=== PATIENT | male | born 1985 | race African-American/Black ===

== ENCOUNTER 2018-10-11 20:32 | Emergency (ER) | payer OTHER ==
--- NOTE | 2018-10-11 20:47 | PDOC ---
Attending Attestation - HPI HPI: 10/11/18 22:02 The patient is a 33 year old male, with a significant past medical history of Asthma ( albuterol inhaler) and DM (not treated) who presents to the emergency department with 2 days of GI, abdominal pain and diarrhea. The patient notes having 5 episodes of vomiting described as brown in color accompanied with nausea, fevers and difficulty breathing. The patient notes having overall body aches and endorses polydipsia. The patient endorses sick contact from daughter ( with recent GI virus). The patient denies chest pain, headache or dizziness. Allergies: Seafood Past surgical history: None reported Social history: Tobacco use - Physicial Exam PE: 10/11/18 22:03 GENERAL: Appears weak and dehydrated. Awake, alert, and fully oriented. HEAD: No signs of trauma EYES: PERRLA, EOMI, sclera anicteric, conjunctiva clear ENT: Auricles normal inspection, hearing grossly normal, nares patent, oropharynx clear without exudates. Moist mucosa NECK: Normal ROM, supple, no lymphadenopathy, JVD, or masses LUNGS: Breath sounds equal, clear to auscultation bilaterally. No wheezes, and no crackles HEART: Not tachycardic. Regular rate and rhythm, normal S1 and S2, no murmurs, rubs or gallops ABDOMEN: (+) mild diffuse abdominal tenderness. (+) minimal rebound. Soft, nontender, normoactive bowel sounds. No guarding, No masses EXTREMITIES: Normal range of motion, no edema. No clubbing or cyanosis. No cords, erythema, or tenderness NEUROLOGICAL: Cranial nerves II through XII grossly intact. Normal speech. SKIN: Warm, Dry, normal turgor, no rashes or lesions noted. <Marylou Jacinto - Last Filed: 10/11/18 22:02> - Resident Resident Name: Frank Sheth - ED Attending Attestation I have performed the following: I have examined & evaluated the patient, The case was reviewed & discussed with the resident, I agree w/resident's findings & plan - Medical Decision Making 10/11/18 21:55 Pt likely has a viran gastroenteritis. He complains of fever chills and total body aches; this is possibly due to the flu; we will send a flu cx off. Pt also mentions that his 1yo child is ill. He has normal HEENT exam. Pt will be treated with tylenol. He is receiving fluid bolus. Labs are hemolyzed; they are being redrawn now. 10/11/18 22:08 WBC is elevated @ 17+ we will hydrate with a 2nd Liter. Pt is having ice chips. 10/11/18 22:31 acetone negative and flu ciulture negative. Awaiting cmp results. 10/11/18 22:38 cmp is normal <Krupa Jordan - Last Filed: 10/11/18 22:38> Attestations - Attestations 10/11/18 22:04 Documentation prepared by Marylou Jacinto, acting as medical underwriter for Krupa Jordan MD <Marylou Jacinto - Last Filed: 10/11/18 22:02>
[2018-10-11] MEDS ORDERED: SODIUM CHLORIDE 0.9% 500 ML INFUS.BAG IV ONE ×2 (21:01→22:07)
[2018-10-11] MEDS ORDERED: ONDANSETRON 4 MG/2 ML VIAL IVPB ONE (21:02)
[2018-10-11] MEDS ORDERED: FAMOTIDINE 20 MG/50 ML IVPB 20 MG/50 ML MG IVPB ONE ×2 (21:02→21:17)
[2018-10-11] MEDS ORDERED: ONDANSETRON 4 MG/2 ML VIAL ONE (21:16)
--- NOTE | 2018-10-11 21:34 | PDOC ---
History of Present Illness - General Chief Complaint: Vomiting/Diarrhea Stated Complaint: ABDOMINAL PAIN Time Seen by Provider: 10/11/18 20:37 History Source: Patient, Spouse Exam Limitations: No Limitations - History of Present Illness Initial Comments: Patient is a 33 y/o M w/ PMHx asthma on albuterol and DM (untreated), p/w 2 days GI upset involving unremitting diarrhea and diffuse abdominal pain beginning 2 days ago, complicated by nausea and 5 episodes of NBNB vomiting beginning this morning. Denies hematochezia or melena, denies coffee ground emesis, endorses polyuria and polydipsia, endorses sick contact - daughter with recent GI virus - endorses f/c and generalized aches, endorses lightheadedness and KWAN since symptom onset. No CP, no SOB, no urinary complaints, no pain elsewhere. ROS otherwise negative. States A1c was last checked over 1 year ago and was 6. 10/11/18 21:28 Past History - Travel Traveled outside of the country in the last 30 days: No Close contact w/someone who was outside of country & ill: No - Past Medical History Allergies/Adverse Reactions: Allergies Allergy/AdvReac Type Severity Reaction Status Date / Time No Known Drug Allergies Allergy Verified 07/31/14 04:43 seafood Allergy Uncoded 07/30/14 21:55 Home Medications: Ambulatory Orders Albuterol Sulfate Inhaler - [Ventolin HFA Inhaler -] 1 - 2 inh PO Q4H 07/30/14 Unobtainable Home Med List 0 dose .ROUTE UTDICT 07/30/14 Asthma: Yes Diabetes: Yes - Immunization History Immunization Up to Date: Yes - Suicide/Smoking/Psychosocial Hx Smoking History: Current every day smoker Number of Cigarettes Smoked Daily: 10 Hx Alcohol Use: No Substance Use Type: None Review of Systems - Review of Systems Comments:: As per HPI 10/11/18 21:32 *Physical Exam - Physical Exam Comments: Gen: A&Ox3, in mild distress HEENT: NC/AT, PERRLA, EOMI, dry MM Neck: supple, NT, no LAD, no JVD CV: borderline tachycardic no m/r/g Resp: CTA b/l Abd: +bs, soft, diffusely tender Ext: 2+ pulses, wwp, no edema Neuro: directory operator, motor, sensory systems w/o focal deficit Psych: normal mood, normal affect Skin: warm, dry, normal turgor 10/11/18 21:32 ED Treatment Course - LABORATORY CBC & Chemistry Diagram: 10/11/18 21:30 10/11/18 21:52 Medical Decision Making - Medical Decision Making Presentation is likely viral gastroenteritis but diabetic sequelae cannot be ruled out. Ordered CBC, CMP, lipase, serum acetone. Providing IVF, Zofran, Pepcid. 10/11/18 21:34 WBC 17.7 10/11/18 22:05 Acetone and influenza negative. 10/11/18 22:30 Chemistry wnl. Lipase negative. Providing second IVF bolus. 10/11/18 22:50 Patient feeling better. Providing PO challenge. 10/11/18 23:22 *DC/Admit/Observation/Transfer Diagnosis at time of Disposition: Viral gastroenteritis - Discharge Dispostion Disposition: HOME Condition at time of disposition: Stable - Referrals Referrals: Jesús Hansen [Non Staff, Medical] - - Patient Instructions Printed Discharge Instructions: DI for Viral Gastroenteritis -- Adult Additional Instructions: You were evaluated for a gastrointestinal illness. All of your lab work was negative. The diagnosis is viral gastroenteritis. Please consume plenty of water and reintroduce solid food slowly and carefully. Please follow up with your primary medical doctor. You may take Tylenol for pain or fever. If you experience worsening abdominal pain, nausea, vomiting, diarrhea, fever, chills, chest pain, shortness of breath, or any other new or concerning symptoms, please return to the Emergency Department. - Post Discharge Activity
[2018-10-11 21:36] LABS: BASO % 0.4 % (0-2.0); EOS % 0.9 % (0-4.5); HEMATOCRIT 50.9 % (35.4-49); HEMOGLOBIN 17.1 GM/dL (11.7-16.9); LYMPH % 7.3 % (8-40); MCH 29.4 pg (25.7-33.7); MCHC 33.6 g/dl (32.0-35.9); MEAN CELL VOLUME 87.5 fl (80-96); MEAN PLT VOLUME 8.6 fl (7.5-11.1); NEUT % 86.4 % (42.8-82.8); PLATELET COUNT 265 K/MM3 (134-434); RBC 5.82 M/mm3 (4.00-5.60); RDW 14.3 % (11.9-15.9); WHITE BLOOD COUNT 17.7 K/mm3 (4.0-10.0)
[2018-10-11] MEDS ORDERED: ACETAMINOPHEN 1000 MG/100 ML VIAL (NON FORMULARY) IVPB ONE (21:49)
[2018-10-11] MEDS ORDERED: ACETAMINOPHEN INJECTION 100 ML IVPB ONE (22:01)
[2018-10-11 22:26] LABS: ACETONE SERUM NEGATIVE (NEGATIVE)
[2018-10-11 22:33] LABS: ALBUMIN 4.2 g/dl (3.4-5.0); ALK PHOS 80 U/L (45-117); ANION GAP 6 MMOL/L (8-16); BILIRUBIN,TOTAL 0.6 mg/dL (0.2-1); BLOOD UREA NITROGEN 11 mg/dL (7-18); CALCIUM 9.6 mg/dL (8.5-10.1); CHLORIDE 109 mmol/L (98-107); CO2 26 mmol/L (21-32); CREATININE 1.3 mg/dL (0.55-1.3); GLUCOSE,RANDOM 96 mg/dL (74-106); LIPASE 80 U/L (73-393); POTASSIUM 4.1 mmol/L (3.5-5.1); SGOT/AST 13 U/L (15-37); SGPT/ALT 22 U/L (13-61); SODIUM 140 mmol/L (136-145); TOT PROT 7.8 g/dl (6.4-8.2)
[2018-10-11 23:23] VITALS: BP 124/97; PULSE 89; TEMP 100.4; BMI 17.1
== END 2018-10-12 00:18 | disposition home or self-care (01) ==
LOC: JER 20:32
PROC: 3E033GC Introduction of Other Therapeutic Substance into Peripheral Vein, Percutaneous Approach (ICD-10-PCS; principal; 2018-10-11)
PROC: 3E033GC Introduction of Other Therapeutic Substance into Peripheral Vein, Percutaneous Approach (ICD-10-PCS; 2018-10-11)
PROC: 3E033NZ Introduction of Analgesics, Hypnotics, Sedatives into Peripheral Vein, Percutaneous Approach (ICD-10-PCS; 2018-10-11)
DX: A08.4 Viral intestinal infection, unspecified (principal); B97.89 Other viral agents as the cause of diseases classified elsewhere; E11.9 Type 2 diabetes mellitus without complications; J45.909 Unspecified asthma, uncomplicated; F17.210 Nicotine dependence, cigarettes, uncomplicated
CPT/HCPCS: 36415; 80053; 82009; 83690; 85025; 87804; 96365; 96375; 99282-25; J0131

== ENCOUNTER 2018-10-16 15:23 | Emergency (ER) | payer OTHER ==
--- NOTE | 2018-10-16 15:47 | PDOC ---
Rapid Medical Evaluation Chief Complaint: Pain, Acute Time Seen by Provider: 10/16/18 15:42 Medical Evaluation: Allergies Allergy/AdvReac Type Severity Reaction Status Date / Time No Known Drug Allergies Allergy Verified 07/31/14 04:43 seafood Allergy Uncoded 07/30/14 21:55 10/16/18 15:42 I have performed a brief in-person evaluation of this patient. The patient presents with a chief complaint of: BIBA with complains of body pains, fever, N/V, diarrhea. Patient seen in ED here few days ago for same complains and work-up was negative but report still having severe whole body aches and needs pain meds for his body pain Pertinent physical exam findings: A&O x 3. afebrile I have ordered the following: nothing The patient will proceed to the ED for further evaluation. Discharge Disposition - Diagnosis Malaise Fever Qualifiers: Fever type: unspecified Qualified Code(s): R50.9 - Fever, unspecified - Discharge Dispostion Condition at time of disposition: Stable - Referrals Referrals: Jesús Hansen [Primary Care Provider] - - Patient Instructions - Post Discharge Activity
[2018-10-16 15:53] VITALS: BMI 17.9
--- NOTE | 2018-10-16 16:00 | PDOC ---
History of Present Illness - General Chief Complaint: Pain Stated Complaint: Pain Time Seen by Provider: 10/16/18 15:42 - History of Present Illness Initial Comments: 33 year old with PMH asthma on albuterol and DM (untreated) presenting with fever, diarrhea, diffuse body pains, cough and congestion for the past 5 days. Patient states that he was here 5 days ago because of similar symptoms but was predominantly diarrhea and nausea. He was given IV NS, Ofirmev, and Zofran with good relief of symptoms but admits he did not take any Tylenol or ibuprofen at home and has had a transition of symptoms. His nausea and diarrhea have been improving but his cough, congestion and body aches have not remitted. He did take some Nyquil yesterday evening with good relief of his symptoms. He does also have a daughter at home with very similar symptoms. His partner admits that they do not have enough money for Tylenol and Motrin. 10/16/18 17:07 Past History - Past Medical History Allergies/Adverse Reactions: Allergies Allergy/AdvReac Type Severity Reaction Status Date / Time No Known Drug Allergies Allergy Verified 07/31/14 04:43 seafood Allergy Uncoded 07/30/14 21:55 Home Medications: Ambulatory Orders Albuterol Sulfate Inhaler - [Ventolin HFA Inhaler -] 1 - 2 inh PO Q4H 07/30/14 Unobtainable Home Med List 0 dose .ROUTE UTDICT 07/30/14 Acetaminophen [Tylenol] 325 mg PO QID 10 Days #30 capsule 10/16/18 Acetaminophen [Tylenol] 325 mg PO TID PRN 14 Days #60 tablet 10/16/18 Ibuprofen [Motrin -] 600 mg PO TID #30 tablet 10/16/18 Ibuprofen [Motrin -] 600 mg PO TID PRN 15 Days #60 tablet 10/16/18 Asthma: Yes COPD: No Diabetes: Yes (NIDM) - Immunization History Immunization Up to Date: Yes - Suicide/Smoking/Psychosocial Hx Smoking History: Never smoked Have you smoked in the past 12 months: Yes Number of Cigarettes Smoked Daily: 10 Information on smoking cessation initiated: No Hx Alcohol Use: No Drug/Substance Use Hx: No Substance Use Type: None Review of Systems - Review of Systems Constitutional: Yes: Chills, Fever, Loss of Appetite. No: Diaphoresis HEENTM: No: Blurred Vision, Tearing, Cataracts Respiratory: Yes: Cough. No: Orthopnea, Shortness of Breath Cardiac (ROS): No: Chest Pain, Edema, Irregular Heart Rate ABD/GI: Yes: Diarrhea, Nausea, Poor Appetite. No: Vomiting : No: Dysuria, Frequency Musculoskeletal: Yes: Muscle Pain. No: Back Pain Integumentary: No: Bruising, Lesions, Lumps, Pallor Neurological: No: Headache, Numbness, Paresthesia Hematologic/Lymphatic: No: Anemia, Blood Clots, Easy Bleeding *Physical Exam - Vital Signs Last Vital Signs Temp Pulse Resp BP Pulse Ox 99.3 F 86 17 112/63 96 10/16/18 15:48 10/16/18 15:48 10/16/18 15:48 10/16/18 15:48 10/16/18 15:48 - Physical Exam General Appearance: Yes: Nourished, Appropriately Dressed. No: Apparent Distress HEENT: positive: EOMI, LEE, Normal Voice. negative: Normal ENT Inspection ( nasal congestion) Neck: positive: Trachea midline, Normal Thyroid, Supple, Lymphadenopathy (R), Lymphadenopathy (L). negative: Tender, Rigid Respiratory/Chest: positive: Lungs Clear, Normal Breath Sounds. negative: Chest Tender, Respiratory Distress, Accessory Muscle Use Cardiovascular: positive: Regular Rhythm, Regular Rate Gastrointestinal/Abdominal: positive: Normal Bowel Sounds, Flat, Soft. negative : Tender Lymphatic: negative: Adenopathy, Tenderness Musculoskeletal: positive: Normal Inspection. negative: Decreased Range of Motion Extremity: positive: Normal Capillary Refill, Normal Inspection, Normal Range of Motion. negative: Tender Integumentary: positive: Normal Color, Dry, Warm Neurologic: positive: Fully Oriented, Alert, Normal Mood/Affect, Normal Response , Motor Strength 5/5 Moderate Sedation - Procedure Monitoring Vital Signs: Procedure Monitoring Vital Signs Temperature 99.3 F 10/16/18 15:48 Pulse Rate 86 10/16/18 15:48 Respiratory Rate 17 10/16/18 15:48 Blood Pressure 112/63 10/16/18 15:48 O2 Sat by Pulse Oximetry (%) 96 10/16/18 15:48 ED Treatment Course - LABORATORY CBC & Chemistry Diagram: 10/16/18 17:20 10/16/18 17:20 Medical Decision Making - Medical Decision Making 33 year old with nausea, vomiting, diarrhea, and body aches that are well treated with Tylenol and nyquil at previous visits and at home. Dominic is flu negative with labs WNL. Pain and symptoms all improved Tylenol, IV NS, toradol, Pepcid, and Maalox. Flu negative but patient is very well appearing. Will DC patient with Tylenol and Motrin as he states he does not take any at home and can not afford them. Patient will be DC'd with return precautions and follow up instructions. 10/16/18 19:00 *DC/Admit/Observation/Transfer Diagnosis at time of Disposition: Malaise Fever Qualifiers: Fever type: unspecified Qualified Code(s): R50.9 - Fever, unspecified - Discharge Dispostion Condition at time of disposition: Stable - Prescriptions Prescriptions: Acetaminophen [Tylenol] 325 mg PO TID PRN 14 Days #60 tablet PRN Reason: Fever Acetaminophen [Tylenol] 325 mg PO QID 10 Days #30 capsule Ibuprofen [Motrin -] 600 mg PO TID PRN 15 Days #60 tablet PRN Reason: Fever Ibuprofen [Motrin -] 600 mg PO TID #30 tablet - Referrals Referrals: Jesús Hansen [Primary Care Provider] - - Patient Instructions Printed Discharge Instructions: Nausea and Vomiting-Adult Additional Instructions: Please use Tylenol or Motrin every 4-6 hours for your fevers or pains. Please return to the ED if you have new or worsening symptoms. - Post Discharge Activity
[2018-10-16] MEDS ORDERED: KETOROLAC TROMETHAMINE 15 MG/ML VIAL IVPUSH ONE (17:04)
[2018-10-16] MEDS ORDERED: SODIUM CHLORIDE 0.9% 500 ML INFUS.BAG IV ONE (17:05)
[2018-10-16] MEDS ORDERED: KETOROLAC TROMETHAMINE 15 MG/ML VIAL ONE (17:30)
[2018-10-16 17:41] LABS: BASO % 0.3 % (0-2.0); EOS % 0.5 % (0-4.5); HEMATOCRIT 41.5 % (35.4-49); HEMOGLOBIN 14.2 GM/dL (11.7-16.9); LYMPH % 8.4 % (8-40); MCH 29.9 pg (25.7-33.7); MCHC 34.1 g/dl (32.0-35.9); MEAN CELL VOLUME 87.6 fl (80-96); MEAN PLT VOLUME 8.2 fl (7.5-11.1); MONO % 11.7 % (3.8-10.2); NEUT % 79.1 % (42.8-82.8); PLATELET COUNT 203 K/MM3 (134-434); RBC 4.73 M/mm3 (4.00-5.60); RDW 14.2 % (11.9-15.9); WHITE BLOOD COUNT 8.4 K/mm3 (4.0-10.0)
[2018-10-16] MEDS ORDERED: FAMOTIDINE 20 MG/50 ML IVPB 20 MG/50 ML MG IVPB ONE ×2 (17:45→17:52)
[2018-10-16 18:11] LABS: ALBUMIN 3.8 g/dl (3.4-5.0); ALK PHOS 66 U/L (45-117); ANION GAP 7 MMOL/L (8-16); BILIRUBIN,TOTAL 0.3 mg/dL (0.2-1); BLOOD UREA NITROGEN 7 mg/dL (7-18); CALCIUM 8.3 mg/dL (8.5-10.1); CHLORIDE 104 mmol/L (98-107); CO2 28 mmol/L (21-32); CREATININE 1.1 mg/dL (0.55-1.3); GLUCOSE,RANDOM 85 mg/dL (74-106); POTASSIUM 3.6 mmol/L (3.5-5.1); SGOT/AST 14 U/L (15-37); SGPT/ALT 21 U/L (13-61); SODIUM 139 mmol/L (136-145)
[2018-10-16] MEDS ORDERED: ACETAMINOPHEN 1000 MG/100 ML VIAL (NON FORMULARY) IVPB ONE (18:17)
--- NOTE | 2018-10-16 18:26 | PDOC ---
Attending Attestation - Resident Resident Name: Luis Armando Yepez - ED Attending Attestation I have performed the following: I have examined & evaluated the patient, The case was reviewed & discussed with the resident, I agree w/resident's findings & plan, Exceptions are as noted - HPI HPI: 10/16/18 18:28 The patient is a 33 year old male, with a significant PMH of asthma (albuterol inhaler) and DM (untreated) who presents to the emergency department today complaining of subjective fever, diarrhea, diffuse body aches, non-productive cough, and nasal congestion for 5 days. Patient notes he was seen in the ED 5 days ago primarily for diarrhea, diffuse abdominal pain, and NBNB vomit. Patient was given IV NS, Ofirmev, and Zofran and was discharged secondary to improvement. Patient admits to not taking Tylenol or Ibuprofen at home as recommended, and endorsed that his symptoms have returned. He notes that his nausea and diarrhea have slightly improved, but his non-productive cough, nasal congestion, and diffuse body ache have not. Patient endorses taking Nyquil last night with relief. He confirms a sick contact at home. The patient denies chest pain, shortness of breath, headache and dizziness. Denies constipation. Denies dysuria, frequency, urgency and hematuria. Allergies: NKA Past surgical history: None reported Social history: No reported PCP:Dr. Jesús Hansen - Physicial Exam PE: 10/16/18 18:28 GENERAL: The patient is awake, alert, and fully oriented, Nontoxic - in no acute distress. PULM: CTA b/l ABD: Soft nontender CARD: RRR, No M/r/g. SKIN: Warm, Dry, normal turgor, - Medical Decision Making 10/16/18 18:29 suspect viral enteritis vs influenza will treat supportively labs unremarkble flu neg return precautions were discussed <Geovani Landeros - Last Filed: 10/16/18 18:28> - Medical Decision Making Documentation prepared by FLORA Aquino, acting as medical reception specialist for Geovani Landeros MD. 10/16/18 21:50 <Jayne Cleveland - Last Filed: 10/16/18 21:50>
[2018-10-16] MEDS ORDERED: ACETAMINOPHEN INJECTION 100 ML IVPB ONE (18:31)
[2018-10-16 19:26] VITALS: BP 121/76; PULSE 79; TEMP 98.8
== END 2018-10-16 19:28 | disposition home or self-care (01) ==
LOC: JER 15:23
PROC: 3E033GC Introduction of Other Therapeutic Substance into Peripheral Vein, Percutaneous Approach (ICD-10-PCS; principal; 2018-10-16)
PROC: 3E033NZ Introduction of Analgesics, Hypnotics, Sedatives into Peripheral Vein, Percutaneous Approach (ICD-10-PCS; 2018-10-16)
PROC: 3E0333Z Introduction of Anti-inflammatory into Peripheral Vein, Percutaneous Approach (ICD-10-PCS; 2018-10-16)
DX: R50.9 Fever, unspecified (principal); R53.81 Other malaise
CPT/HCPCS: 36415; 80053; 85025; 87804; 99282-25; J0131

== ENCOUNTER 2019-10-24 19:17 | Emergency (ER) | payer OTHER ==
[2019-10-24 19:30] VITALS: BP 117/70; PULSE 86; TEMP 97.8; BMI 20.2
--- NOTE | 2019-10-24 20:21 | PDOC ---
History of Present Illness - General Chief Complaint: Abscess Boil Stated Complaint: LEG PAIN Time Seen by Provider: 10/24/19 19:35 History Source: Patient Exam Limitations: No Limitations - History of Present Illness Initial Comments: 10/24/19 20:15 HISTORY OF PRESENT ILLNESS: 34-year-old male denies medical history presents emergency department for evaluation of fluctuant mass present to his right anterior thigh for the past 6 days. Patient with similar growth to abdominal wall. He denies any fevers or chills and growths are painless. No recent travel or sick contacts. PAST MEDICAL HISTORY: Denies past medical history SURGICAL HISTORY: Denies ALLERGIES: No known drug allergies REVIEW OF SYSTEMS General/Constitutional: Denies fever or chills. Denies weakness, weight change. HEENT: Denies change in vision. Denies ear pain or discharge. Denies sore throat. Cardiovascular: Denies chest pain or shortness of breath. Respiratory: Denies cough, wheezing, or hemoptysis. Gastrointestinal: Denies nausea, vomiting, diarrhea or constipation. Denies rectal bleeding. Genitourinary: Denies dysuria, frequency, or change in urination. Musculoskeletal: Denies joint or muscle swelling or pain. Denies neck or back pain. Skin and breasts: See HPI Neurologic: Denies headache, vertigo, loss of consciousness, or loss of sensation. Psychiatric: Denies depression or anxiety. Endocrine: Denies increased thirst. Denies abnormal weight change. Hematologic/Lymphatic: Denies anemia, easy bleeding, or history of blood clots. Allergic/Immunologic: Denies hives or skin allergy. Denies latex allergy. PHYSICAL EXAM General Appearance: Well-appearing, appropriately dressed. No apparent distress , no intoxication. Gastrointestinal/Abdominal: Normal bowel sounds. Abdomen soft, non-distended. No tenderness or rebound tenderness. No organomegaly, pulsatile mass, guarding, hernia, hepatomegaly, splenomegaly. Approximate 0.5 cm circular firm nodule present to the abdominal wall of the epigastrium. Mobile with the skin. No erythema or fluctuance present. Lymphatic: No adenopathy, tenderness. Integumentary: Approximate 2 cm circular raised fluctuant lesion present to the right anterior thigh midway between knee and hip. Erythema surrounding with a 4 cm area of induration. Tender upon palpation. No discharge or drainage present. Past History - Past Medical History Allergies/Adverse Reactions: Allergies Allergy/AdvReac Type Severity Reaction Status Date / Time No Known Drug Allergies Allergy Verified 10/24/19 19:30 seafood Allergy Uncoded 10/24/19 19:30 Home Medications: Ambulatory Orders Albuterol Sulfate Inhaler - [Ventolin HFA Inhaler -] 1 - 2 inh PO Q4H 07/30/14 Unobtainable Home Med List 0 dose .ROUTE UTDICT 07/30/14 Acetaminophen [Tylenol] 325 mg PO QID 10 Days #30 capsule 10/16/18 Acetaminophen [Tylenol] 325 mg PO TID PRN 14 Days #60 tablet 10/16/18 Ibuprofen [Motrin -] 600 mg PO TID #30 tablet 10/16/18 Ibuprofen [Motrin -] 600 mg PO TID PRN 15 Days #60 tablet 10/16/18 Asthma: Yes COPD: No Diabetes: Yes (NIDM) - Immunization History Immunization Up to Date: Yes - Psycho Social/Smoking Cessation Hx Smoking History: Never smoked Have you smoked in the past 12 months: Yes Number of Cigarettes Smoked Daily: 10 Hx Alcohol Use: No Drug/Substance Use Hx: No Substance Use Type: None *Physical Exam - Vital Signs Last Vital Signs Temp Pulse Resp BP Pulse Ox 97.8 F 86 18 117/70 98 10/24/19 19:27 10/24/19 19:27 10/24/19 19:27 10/24/19 19:27 10/24/19 19:27 Procedures - Consent Consent obtained: Verbal, From Patient Medical Decision Making - Medical Decision Making 10/24/19 20:19 A/P: 34-year-old male with abscess to the right anterior thigh and nodule to epigastric abdominal wall Approximate 2 cm circular area of fluctuance present to the right anterior thigh midway between the hip and the knee. 4 cm circular area of fluctuance surrounding lesion. Erythema and tenderness present. No drainage noted. Approximate 0.5 cm circular firm mobile lesion present to the epigastric abdominal wall. No erythema, induration or drainage present. No fluctuance noted. I&D 10/24/19 20:47 Upon attempt of I&D was noted that the patient had a sebaceous cyst. Verbal consent obtained Betadine cleansed Anesthesia using 6 mL of lidocaine Single incision using 11 blade scalpel done Expression of sebum totaling 10 cc Cyst membrane obtained and removed. Single 5-0 absorbable suture placed to close wound As this was a sebaceous cyst likely abdominal cyst as well. Given proximity to diaphragm and patient's small frame I will defer treatment at this time and refer patient to dermatology for definitive treatment. Discharge home with dermatology follow-up Discharge - Discharge Information Problems reviewed: Yes Clinical Impression/Diagnosis: Inflamed sebaceous cyst Condition: Stable Disposition: HOME - Admission No - Follow up/Referral Referrals: Frank Armstrong MD [Primary Care Provider] - Kami Hogan MD [Staff Physician] - Alexander Jenkins [Non Staff, Medical] - - Patient Discharge Instructions Patient Printed Discharge Instructions: DI for Epidermal Cyst Additional Instructions: Keep site clean. Use antibacterial soap such as Dial to help prevent infection. After cleansing the wound twice a day apply bacitracin. Take Tylenol Motrin as needed for pain. Follow folding machine setter's instructions for appropriate dosage. Follow-up with dermatology for evaluation of cyst on your abdominal wall. Return to the emergency department for any new or worsening symptoms. Thank you very much for choosing us to provide your emergent healthcare needs. - Post Discharge Activity
== END 2019-10-24 20:57 | disposition home or self-care (01) ==
LOC: JERFT 19:17
PROC: 0J980ZZ Drainage of Abdomen Subcutaneous Tissue and Fascia, Open Approach (ICD-10-PCS; principal; 2019-10-24)
PROC: 0J9L0ZZ Drainage of Right Upper Leg Subcutaneous Tissue and Fascia, Open Approach (ICD-10-PCS; 2019-10-24)
DX: L72.3 Sebaceous cyst (principal)
CPT/HCPCS: 10060; 99283-25

== ENCOUNTER 2021-08-28 09:04 | Emergency (ER) | payer OTHER ==
[2021-08-28 09:13] VITALS: BP 128/87; PULSE 78; TEMP 98.7; BMI 25.8
[2021-08-29 10:07] LABS: SARS-CoV-2 NAA Detected (Not Detected)
== END 2021-08-28 11:25 | disposition home or self-care (01) ==
LOC: JER 09:04
DX: U07.1 COVID-19 (principal)
CPT/HCPCS: 87804; 99283-25; C9803; U0003; U0005

== ENCOUNTER 2021-11-23 22:32 | Emergency (ER) | payer OTHER ==
[2021-11-23 23:04] VITALS: BP 122/71; PULSE 65; TEMP 98.7; BMI 21.8
[2021-11-23] MEDS ORDERED: IBUPROFEN 400 MG TABLET (FP) PO ONE ×2 (23:33→23:36)
== END 2021-11-24 01:03 | disposition home or self-care (01) ==
LOC: JER 22:32
DX: S63.501A Unspecified sprain of right wrist, initial encounter (principal); S90.111A Contusion of right great toe without damage to nail, initial encounter; X50.0XXA Overexertion from strenuous movement or load, initial encounter
CPT/HCPCS: 73110-TC-RT-FY; 73130-TC-RT-FY; 73630-TC-RT-FY; 99284-25

== ENCOUNTER 2022-02-21 13:50 | Emergency (ER) | payer OTHER ==
[2022-02-21 14:08] VITALS: BMI 23.8
[2022-02-21] MEDS ORDERED: ACETAMINOPHEN 500 MG TABLET (FP) PO ONE (15:08)
[2022-02-21] MEDS ORDERED: ACETAMINOPHEN 500 MG TABLET (FP) ONE (15:20)
[2022-02-21] MEDS ORDERED: BEBTELOVIMAB (EUA) 175 MG/2 ML VIAL IVPUSH ONE (17:16)
[2022-02-21 20:53] VITALS: BP 133/76; PULSE 86; TEMP 98.3
== END 2022-02-21 20:53 | disposition home or self-care (01) ==
LOC: JER 13:50
PROC: 3E033GC Introduction of Other Therapeutic Substance into Peripheral Vein, Percutaneous Approach (ICD-10-PCS; principal; 2022-02-21)
DX: J06.9 Acute upper respiratory infection, unspecified (principal)
CPT/HCPCS: 0241U-QW; 96374; 99284-25; M0222; Q0222

== ENCOUNTER 2023-06-11 14:16 | Emergency (ER) | payer OTHER ==
[2023-06-11] MEDS ORDERED: ACETAMINOPHEN 500 MG TABLET (FP) PO ONE (15:16)
[2023-06-11 15:25] VITALS: BP 152/88; PULSE 76; RESP 20; TEMP 98; BMI 20.5
[2023-06-11] MEDS ORDERED: ACETAMINOPHEN 500 MG TABLET (FP) ONE (15:27)
== END 2023-06-11 16:02 | disposition home or self-care (01) ==
LOC: JERFT 14:16
DX: M54.2 Cervicalgia (principal); V49.40XA Driver injured in collision with unspecified motor vehicles in traffic accident, initial encounter; Y93.I9 Activity, other involving external motion
CPT/HCPCS: 99283-25

== ENCOUNTER 2023-07-29 09:38 | Emergency (ER) | payer OTHER ==
[2023-07-29] MEDS ORDERED: ACETAMINOPHEN 1000 MG/100 ML BAG IVPB ONE (10:27)
[2023-07-29] MEDS ORDERED: FAMOTIDINE 20 MG/50 ML IVPB 20 MG/50 ML MG IVPB ONE ×2 (10:27→10:57)
[2023-07-29] MEDS ORDERED: SODIUM CHLORIDE 1,000 ML IV STA (10:27)
[2023-07-29] MEDS ORDERED: ONDANSETRON 4 MG/2 ML VIAL IVPUSH ONE (10:28)
[2023-07-29] MEDS ORDERED: MAG HYDROX/AL HYDROX/SIMETH -MYLANTA- ORAL SUSPENSION PO ONE (10:28)
[2023-07-29] MEDS ORDERED: ONDANSETRON 4 MG/2 ML VIAL ONE (10:57)
[2023-07-29] MEDS ORDERED: MAG HYDROX/AL HYDROX/SIMETH 30 ML UNIT-DOSE CUP ONE (10:57)
[2023-07-29] MEDS ORDERED: ACETAMINOPHEN INJECTION 100 ML IVPB ONE (10:57)
[2023-07-29 11:37] VITALS: BP 111/70; PULSE 80; RESP 14; TEMP 98.7; BMI 19.9
[2023-07-29 11:43] LABS: VENOUS BASE EXCESS -1.8 mmol/L (-2-2); VENOUS O2 SATURATION 88.3 % (70-80); VENOUS PCO2 39.1 mmHg (38-52); VENOUS PH 7.386 (7.310-7.410)
[2023-07-29 11:49] LABS: BASO % 0.3 % (0-2.0); EOS % 1.4 % (0-4.5); HEMATOCRIT 46.3 % (35.4-49); HEMOGLOBIN 14.6 GM/dL (11.7-16.9); LYMPH % 6.2 % (8-40); MCH 26.5 pg (25.7-33.7); MCHC 31.6 g/dl (32.0-35.9); MEAN CELL VOLUME 83.9 fl (80-96); MEAN PLT VOLUME 8.5 fl (7.5-11.1); MONO % 3.3 % (3.8-10.2); NEUT % 88.8 % (42.8-82.8); PLATELET COUNT 296 10^3/uL (134-434); RBC 5.52 M/mm3 (4.00-5.60); RDW 14.6 % (11.9-15.9); WHITE BLOOD COUNT 12.7 K/mm3 (4.0-10.0)
[2023-07-29 12:21] LABS: POTASSIUM 4.1 mmol/L (3.5-5.1)
[2023-07-29 12:23] LABS: MAGNESIUM 1.9 mg/dL (1.8-2.4)
[2023-07-29 12:24] LABS: BLOOD UREA NITROGEN 15.9 mg/dL (7-18); CALCIUM 9.3 mg/dL (8.5-10.1)
[2023-07-29 12:26] LABS: CREATININE 1.1 mg/dL (0.55-1.3)
[2023-07-29 12:27] LABS: BILIRUBIN,DIRECT 0.2 mg/dL (0.0-0.2); PHOSPHOROUS 2.6 mg/dL (2.5-4.9)
[2023-07-29 12:28] LABS: TOT PROT 7.7 g/dl (6.4-8.2)
[2023-07-29] MEDS ORDERED: METOCLOPRAMIDE HCL INJECTION 10 MG/2 ML VIAL IVPUSH ONE (12:36)
[2023-07-29] MEDS ORDERED: SODIUM CHLORIDE 0.9% 500 ML INFUS.BAG IV ONE (12:36)
[2023-07-29] MEDS ORDERED: METOCLOPRAMIDE HCL INJECTION 10 MG/2 ML VIAL ONE (13:55)
[2023-07-29] MEDS ORDERED: LACTATED RINGERS SOLUTION 1000 ML INFUS.BAG IV ONE (14:55)
[2023-07-29] MEDS ORDERED: KETOROLAC TROMETHAMINE 15 MG/ML VIAL IVPUSH ONE (14:59)
[2023-07-29] MEDS ORDERED: KETOROLAC TROMETHAMINE 15 MG/ML VIAL ONE (15:02)
== END 2023-07-29 17:15 | disposition home or self-care (01) ==
LOC: JER 09:38
PROC: 3E033GC Introduction of Other Therapeutic Substance into Peripheral Vein, Percutaneous Approach (ICD-10-PCS; principal; 2023-07-29)
PROC: 3E033GC Introduction of Other Therapeutic Substance into Peripheral Vein, Percutaneous Approach (ICD-10-PCS; 2023-07-29)
PROC: 3E033GC Introduction of Other Therapeutic Substance into Peripheral Vein, Percutaneous Approach (ICD-10-PCS; 2023-07-29)
PROC: 3E0333Z Introduction of Anti-inflammatory into Peripheral Vein, Percutaneous Approach (ICD-10-PCS; 2023-07-29)
PROC: 3E033NZ Introduction of Analgesics, Hypnotics, Sedatives into Peripheral Vein, Percutaneous Approach (ICD-10-PCS; 2023-07-29)
DX: R11.2 Nausea with vomiting, unspecified (principal); R50.9 Fever, unspecified; R19.7 Diarrhea, unspecified; R10.9 Unspecified abdominal pain; R53.1 Weakness; Z20.822 Contact with and (suspected) exposure to COVID-19
CPT/HCPCS: 0241U-QW; 36415; 74177-TC; 80053; 82010; 82248; 82550; 82803; 83605; 83690; 83735; 84100; 84484; 85025; 93005; 93010; 96365; 96375; 99285-25; Q9967